=== PATIENT | female | born 1995 | race Caucasian/White ===

== ENCOUNTER 2023-04-06 11:58 | Day surgery (SDC) | payer BC ==
[~2023-04-06] VITALS: Ht 172.7 cm; Wt 81.2 kg
[~2023-04-06 11:58] MED LIST: DOCU100 PO; FERSU300 PO; Tri-Sprintec1 EACH PO
[2023-04-06 15:18] VITALS: BP 120/93
== END 2023-04-06 15:22 | disposition home or self-care (01) ==
LOC: ORSCSDS 11:58
PROVIDERS: Internal Medicine Gastroenterology
PROC: 0DB78ZX Excision of Stomach, Pylorus, Via Natural or Artificial Opening Endoscopic, Diagnostic (ICD-10-PCS; principal; 2023-04-06 13:15)
PROC: 0DB98ZX Excision of Duodenum, Via Natural or Artificial Opening Endoscopic, Diagnostic (ICD-10-PCS; principal; 2023-04-06 13:15)
PROC: 0DJD8ZZ Inspection of Lower Intestinal Tract, Via Natural or Artificial Opening Endoscopic (ICD-10-PCS; principal; 2023-04-06 13:15)
DX: R19.4 Change in bowel habit (principal); K59.00 Constipation, unspecified; R10.13 Epigastric pain; R14.0 Abdominal distension (gaseous)
CPT/HCPCS: 88305; 88342; J2250; J2704; J7120